=== PATIENT | male | born 1975 | race Caucasian/White ===

== ENCOUNTER 2018-11-22 20:04 | Emergency (ER) | payer OTHER ==
[2018-11-22] MEDS ORDERED: KETOROLAC 30 MG/ML INJ ONE (23:06)
[2018-11-22] MEDS ORDERED: ASPIRIN 81 MG CHEWABLE TABLET ONE (23:06)
[2018-11-22 23:12] LABS: Absolute Lymphocytes (CBC) 1.9 K/uL (0.7-4.9); Absolute Monocytes 1.2 K/uL (0.1-1.3); Absolute Neutrophil 16.5 K/uL (1.8-8.0); Basophils % 0.2 % (0-1.3); Eosinophils % 0.4 % (0-4.4); Hematocrit 49.6 % (39.6-49.0); Lymphocytes % 9.8 % (15.3-44.8); MPV 8.9 fL (7.6-11.3); RBC Red Blood Cell Count 5.35 M/uL (4.33-5.43)
[2018-11-22 23:13] LABS: Protime INR 0.98
[2018-11-22 23:25] LABS: ALT/SGPT 64 U/L (12-78); AST/SGOT 34 U/L (15-37); Albumin 4.2 g/dL (3.4-5.0); Alkaline Phosphatase 99 U/L (45-117); BUN Blood Urea Nitrogen 9 mg/dL (7-18); Bicarbonate 27 mmol/L (21-32); Bilirubin Direct 0.2 mg/dL (0-0.2); Bilirubin Total 0.8 mg/dL (0.2-1.0); Glucose Level 101 mg/dL (74-106); Magnesium 2.1 mg/dL (1.8-2.4); NT PRO-BNP 12 pg/mL (<125); Protein, Total 8.8 g/dL (6.4-8.2); Sodium Level 139 mmol/L (136-145); Troponin (Emerg Dept Use Only) < 0.02 ng/mL (0.0-0.045)
[2018-11-22] MEDS ORDERED: NA CHLORIDE 0.9% 1,000 ML ONE (23:28)
[2018-11-22] MEDS ORDERED: NA CHLORIDE 0.9% 2,000 ML ONE (23:42)
[2018-11-23 02:25] LABS: Urine Bacteria <20 /HPF (NONE SEEN); Urine Culture Reflex Order NOT NEEDED; Urine RBC <5 /HPF (NONE SEEN)
--- NOTE | 2018-11-23 03:36 | EDPHYS ---
Physician Documentation [facility] Name: Renard Rosales Age: 43 yrs Sex: Male : 1975 Arrival Date: 11/22/2018 Time: 20:09 Bed 18 Private MD: ED Physician Christian Wasserman HPI: 11/22 22:25 This 43 yrs old Male presents to ER via Ambulatory with complaints of Sore cp Throat, body aches, chills. 22:25 The patient or guardian reports chest pain that is located primarily in the anterior cp chest wall, bilaterally. 22:25 Onset: suddenly, today, about 1600 while walking to office. cp 11/23 22:25 Associated signs and symptoms: Pertinent positives: cough, sore throat, Pertinent cp negatives: abdominal pain, diaphoresis, lower extremity pain, lower extremity swelling, recent travel, shortness of breath, vomiting. Historical: - Allergies: 11/22 21:04 No Known Allergies; bb - Home Meds: 21:04 None [Active]; bb - PMHx: 21:04 None; bb - PSHx: 21:04 Ear Tubes; Tonsillectomy; bb - Immunization history:: Adult Immunizations up to date, Flu vaccine is not up to date. - Social history:: Smoking status: Patient/guardian denies using tobacco, Patient uses alcohol, on a daily basis. Patient/guardian denies using street drugs. - Ebola Screening: : No symptoms or risks identified at this time. ROS: 22:30 Constitutional: Positive for low grade fever, Negative for poor PO intake. cp 22:30 ENT: Positive for sore throat, Negative for drainage from ear(s), ear pain, difficulty cp swallowing, difficulty handling secretions. 22:30 Neck: Negative for pain with movement, pain at rest, stiffness, tenderness. 22:30 Cardiovascular: Positive for chest pain, Negative for edema. 22:30 Respiratory: Positive for slight cough, Negative for shortness of breath, wheezing. 22:30 Abdomen/GI: Negative for abdominal pain, vomiting, diarrhea, constipation, black/tarry stool, rectal bleeding. 22:30 Back: Positive for pain at rest, Negative for injury or acute deformity. 22:30 : Negative for urinary symptoms, flank pain. 22:30 Skin: Negative for cellulitis, rash. 22:30 Neuro: Negative for altered mental status, dizziness, headache, weakness. 22:30 All other systems are negative. Exam: 22:35 Constitutional: The patient appears in no acute distress, alert, awake, cp non-diaphoretic, non-toxic, well developed, well nourished. 22:35 Head/Face: Normocephalic, atraumatic. Eyes: Pupils equal round and reactive to light, cp extra-ocular motions intact. Lids and lashes normal. Conjunctiva and sclera are non-icteric and not injected. Cornea within normal limits. Periorbital areas with no swelling, redness, or edema. ENT: Nares patent. No nasal discharge, no septal abnormalities noted. Tympanic membranes are normal and external auditory canals are clear. Oropharynx with no redness, swelling, or masses, exudates, or evidence of obstruction, uvula midline. Mucous membranes moist. Neck: Trachea midline, no thyromegaly or masses palpated, and no cervical lymphadenopathy. Supple, full range of motion without nuchal rigidity, or vertebral point tenderness. No Meningismus. Chest/axilla: Normal chest wall appearance and motion. Nontender with no deformity. No lesions are appreciated. 22:35 Cardiovascular: Rate: tachycardic, Rhythm: regular, Heart sounds: murmur, not appreciated, rub, not appreciated, gallop, not appreciated, Edema: is not appreciated, JVD: is not appreciated. 22:35 Respiratory: the patient does not display signs of respiratory distress, Respirations: normal, no use of accessory muscles, no retractions, no splinting, no tachypnea, labored breathing, is not present, Breath sounds: are clear throughout, no decreased breath sounds, no stridor, no wheezing. 22:35 Abdomen/GI: Inspection: abdomen appears normal, Bowel sounds: active, all quadrants, Palpation: abdomen is soft and non-tender, in all quadrants, rebound tenderness, is not appreciated, involuntary guarding, is not appreciated. 22:35 Back: pain, is absent, ROM is normal. 22:35 Skin: cellulitis, is not appreciated, no rash present. 22:35 Neuro: Orientation: to person, place \T\ time. Mentation: is normal, Cerebellar function: is grossly normal, Motor: moves all fours, strength is normal, Sensation: is normal. 23:05 ECG was reviewed by the Attending Physician. cp Vital Signs: 21:04 BP 146 / 96; Pulse 109; Resp 16 S; Temp 100(O); Pulse Ox 97% on R/A; Weight 99.79 kg bb (R); Height 5 ft. 10 in. (177.80 cm) (R); Pain 3/10; 23:56 BP 140 / 98; Pulse 117; Resp 17 S; Temp 98.8; Pulse Ox 97% on R/A; jd3 02/13 01:09 BP 114 / 96; Pulse 113; Resp 17 S; Pulse Ox 97% on R/A; jd3 02:18 BP 128 / 92; Pulse 84; Resp 16 S; Pulse Ox 97% on R/A; jd3 03:13 BP 133 / 97; Pulse 81; Resp 17 S; Pulse Ox 98% on R/A; jd3 02/12 21:04 Body Mass Index 31.57 (99.79 kg, 177.80 cm) bb MDM: 11/22 22:09 Patient medically screened. cp 23:00 Differential diagnosis: abnormal EKG, acute myocardial infarction, acute pericarditis, cp chest wall pain, myocarditis, sepsis, pneumonia, influenza, strep throat. 11/23 01:30 The patient was given aspirin in the Emergency Department. cp 01:30 Refusal of service: The patient/guardian displays adequate decision making capability cp and despite a detailed discussion of alternatives, benefits, risks, and consequences refuses: CT Scan. 03:33 Data reviewed: vital signs, nurses notes, lab test result(s), EKG, radiologic studies, cp plain films. 03:33 Test interpretation: by ED physician or midlevel provider: ECG, plain radiologic cp studies. Counseling: I had a detailed discussion with the patient and/or guardian regarding: the historical points, exam findings, and any diagnostic results supporting the discharge/admit diagnosis, lab results, radiology results, the need for outpatient follow up, a family practitioner, to return to the emergency department if symptoms worsen or persist or if there are any questions or concerns that arise at home. Response to treatment: the patient's symptoms have markedly improved after treatment, and as a result, I will discharge patient. 11/22 21:06 Order name: Flu; Complete Time: 22:19 bb 11/22 22:19 Interpretation: Reviewed. cp 11/22 21:06 Order name: Strep; Complete Time: 22:19 bb / 22:19 Interpretation: Reviewed. cp 02/ 22:07 Order name: Throat Culture EDMS 02/ 22:24 Order name: Basic Metabolic Panel; Complete Time: 23:51 cp 02/12 23:51 Interpretation: Normal except: GFR 62. cp / 22:24 Order name: CBC with Diff; Complete Time: 23:18 cp / 23:18 Interpretation: Normal except: WBC 19.8; HCT 49.6; TINO% 83.6; LYM% 9.8; NEUT A 16.5. cp 02/ 22:24 Order name: LFT's; Complete Time: 23:51 cp 02/ 23:51 Interpretation: Normal except: TP 8.8; GLOB 4.6; A/G 0.9. cp 02/ 22:24 Order name: Magnesium; Complete Time: 23:51 cp / 22:24 Order name: NT PRO-BNP; Complete Time: 23:51 cp / 22:24 Order name: PT-INR; Complete Time: 23:18 cp 02/ 22:24 Order name: Troponin (emerg Dept Use Only); Complete Time: 23:51 cp / 23:22 Order name: Lactate; Complete Time: 00:49 cp 02/13 00:49 Interpretation: LAC 2.5; Reviewed. cp / 23:22 Order name: Procalcitonin; Complete Time: 01:44 cp 02/ 01:44 Interpretation: Procalcitonin < 0.05; Reviewed. cp / 23:22 Order name: Blood Culture Adult (2) cp / 23:23 Order name: D-Dimer; Complete Time: 00:43 cp 02/ 00:43 Interpretation: D-DIMER 381; Reviewed. cp / 22:24 Order name: XRAY Chest (1 view) cp / 22:24 Order name: EKG; Complete Time: 22:26 cp / 22:24 Order name: Cardiac monitoring; Complete Time: 22:53 cp / 22:24 Order name: EKG - Nurse/Tech; Complete Time: 23:03 cp / 22:24 Order name: IV Saline Lock; Complete Time: 22:53 cp / 22:24 Order name: Labs collected and sent; Complete Time: 22:53 cp 11/22 22:24 Order name: O2 Per Protocol; Complete Time: 22:54 cp 11/22 22:24 Order name: O2 Sat Monitoring; Complete Time: 22:54 cp 11/22 23:52 Order name: Urine Microscopic Only; Complete Time: 02:32 cp 11/23 02:32 Interpretation: Reviewed. 11/23 02:01 Order name: Urine Dipstick--Ancillary (enter results) ms 11/23 02:40 Order name: Lactate: 2 hr repeat 11/23 02:41 Order name: Lactate; Complete Time: 03:26 EDMS 11/23 03:26 Interpretation: LAC 1.6; Reviewed. 11/22 23:52 Order name: Urine Dipstick-Ancillary (obtain specimen); Complete Time: 02:27 cp EC/12 23:05 Rate is 121 beats/min. Rhythm is regular. [place] interval is normal. QRS interval is cp normal. QT interval is normal. Interpreted by me. Reviewed by me. Administered Medications: 23:03 Drug: Aspirin Chewable Tablet 324 mg Route: PO; [facility] 11/23 03:47 Follow up: Response: No adverse reaction j 11/22 23:03 Drug: TORadol 30 mg Route: IVP; Site: right antecubital; jd3 11/23 03:46 Follow up: Response: No adverse reaction jd3 01:07 Drug: NS 0.9% 1000 ml Route: IV; Rate: 1 bolus; Site: right antecubital; jd3 03:46 Follow up: Response: No adverse reaction; IV Status: Completed infusion jd3 01:08 Drug: NS 0.9% (30 ml/kg) 30 ml/kg Route: IV; Rate: bolus; Site: right antecubital; jd3 03:46 Follow up: Response: No adverse reaction; IV Status: Completed infusion jd3 Disposition: 04:00 Chart complete. cp 06:54 Co-signature as Attending Physician, Christian Wasserman MD I agree with the assessment and bogdan plan of care. Disposition: 11/23/18 03:35 Discharged to Home. Impression: Elevated white blood cell count, unspecified, Dehydration. - Condition is Stable. - Discharge Instructions: Dehydration, Adult, Leukocytosis. - Medication Reconciliation Form, Thank You Letter, Antibiotic Education, Prescription Opioid Use form. - Follow up: Private Physician; When: 1 - 2 days; Reason: Recheck today's complaints. - Problem is new. - Symptoms have improved. Signatures: Dispatcher [employer] EDMS Christian Wasserman MD MD cha Ballard, Brenda, RN RN Christian Tinoco PA PA cp Davies, Jonathon, RN RN jd3 Corrections: (The following items were deleted from the chart) 03:37 03:35 11/23/2018 03:35 Discharged to Home. Impression: Elevated white blood cell count, cp unspecified. Condition is Stable. Forms are Medication Reconciliation Form, Thank You Letter, Antibiotic Education, Prescription Opioid Use. Follow up: Private Physician; When: 1 - 2 days; Reason: Recheck today's complaints. Problem is new. Symptoms have improved. cp 03:47 03:37 11/23/2018 03:35 Discharged to Home. Impression: Elevated white blood cell count, jd3 unspecified; Dehydration. Condition is Stable. Discharge Instructions: Leukocytosis. Forms are Medication Reconciliation Form, Thank You Letter, Antibiotic Education, Prescription Opioid Use. Follow up: Private Physician; When: 1 - 2 days; Reason: Recheck today's complaints. Problem is new. Symptoms have improved. cp
--- NOTE | 2018-11-23 03:36 | ER ---
Nurse's Notes [facility] Name: Renard Rosales Age: 43 yrs Sex: Male : 1975 Arrival Date: 11/22/2018 Time: 20:09 Bed 18 Private MD: Diagnosis: Elevated white blood cell count, unspecified;Dehydration Presentation: 11/22 21:02 Presenting complaint: Patient states: he had an onset of feeling achy starting at bb approx 1600 and is feeling pressure across his torso into his back has an occasional cough starting tonight. Transition of care: patient was not received from another setting of care. Onset of symptoms was November 22, 2018. Risk Assessment: Do you want to hurt yourself or someone else? Patient reports no desire to harm self or others. Initial Sepsis Screen: Does the patient meet any 2 criteria? No. Patient's initial sepsis screen is negative. Does the patient have a suspected source of infection? No. Patient's initial sepsis screen is negative. Care prior to arrival: None. 21:02 Method Of Arrival: Ambulatory 21:02 Acuity: BARB 3 bb Historical: - Allergies: 21:04 No Known Allergies; bb - Home Meds: 21:04 None [Active]; bb - PMHx: 21:04 None; bb - PSHx: 21:04 Ear Tubes; Tonsillectomy; bb - Immunization history:: Adult Immunizations up to date, Flu vaccine is not up to date. - Social history:: Smoking status: Patient/guardian denies using tobacco, Patient uses alcohol, on a daily basis. Patient/guardian denies using street drugs. - Ebola Screening: : No symptoms or risks identified at this time. Screenin:51 Abuse screen: Denies threats or abuse. Nutritional screening: No deficits noted. jd3 Tuberculosis screening: No symptoms or risk factors identified. Fall Risk Ambulatory Aid- None/Bed Rest/Nurse Assist (0 pts). Gait- Normal/Bed Rest/Wheelchair (0 pts) Mental Status- Oriented to own ability (0 pts). Total Uriostegui Fall Scale indicates No Risk (0-24 pts). Assessment: 21:50 General: Appears in no apparent distress. uncomfortable, Behavior is calm, cooperative, jd3 appropriate for age. Pain: Denies pain. Complains of pain in chest, right arm, left arm and neck Quality of pain is described as aching. Neuro: Level of Consciousness is awake, alert, obeys commands, Oriented to person, place, time, situation. Cardiovascular: Heart tones S1 S2 present Capillary refill < 3 seconds Patient's skin is warm and dry. Respiratory: Reports cough that is non-productive, Airway is patent Respiratory effort is even, unlabored, Respiratory pattern is regular, symmetrical, Breath sounds are clear bilaterally. GI: Abdomen is round non-distended, Reports indigestion. : No signs and/or symptoms were reported regarding the genitourinary system. EENT: Throat is reddened. Derm: Skin is intact, Skin is dry, Skin is normal, Skin temperature is warm. Musculoskeletal: Circulation, motion, and sensation intact. Range of motion: intact in all extremities. 22:53 Reassessment: Patient appears in no apparent distress at this time. Patient and/or jd3 family updated on plan of care and expected duration. Pain level reassessed. Patient is alert, oriented x 3, equal unlabored respirations, skin warm/dry/pink. 23:56 Reassessment: Patient appears in no apparent distress at this time. Patient and/or jd3 family updated on plan of care and expected duration. Pain level reassessed. Patient is alert, oriented x 3, equal unlabored respirations, skin warm/dry/pink. pt requesting to hold the fluids until results of lactate and procalcitonin are resulted. 11/23 01:10 Reassessment: Patient appears in no apparent distress at this time. Patient and/or jd3 family updated on plan of care and expected duration. Pain level reassessed. Patient is alert, oriented x 3, equal unlabored respirations, skin warm/dry/pink. provider at bedside discussing plan of care. 02:18 Reassessment: Patient appears in no apparent distress at this time. Patient and/or jd3 family updated on plan of care and expected duration. Pain level reassessed. Patient is alert, oriented x 3, equal unlabored respirations, skin warm/dry/pink. 03:12 Reassessment: Patient appears in no apparent distress at this time. Patient and/or jd3 family updated on plan of care and expected duration. Pain level reassessed. Patient is alert, oriented x 3, equal unlabored respirations, skin warm/dry/pink. Vital Signs: 11/22 21:04 BP 146 / 96; Pulse 109; Resp 16 S; Temp 100(O); Pulse Ox 97% on R/A; Weight 99.79 kg bb (R); Height 5 ft. 10 in. (177.80 cm) (R); Pain 3/10; 23:56 BP 140 / 98; Pulse 117; Resp 17 S; Temp 98.8; Pulse Ox 97% on R/A; jd3 11/23 01:09 BP 114 / 96; Pulse 113; Resp 17 S; Pulse Ox 97% on R/A; jd3 02:18 BP 128 / 92; Pulse 84; Resp 16 S; Pulse Ox 97% on R/A; jd3 03:13 BP 133 / 97; Pulse 81; Resp 17 S; Pulse Ox 98% on R/A; jd3 11/22 21:04 Body Mass Index 31.57 (99.79 kg, 177.80 cm) bb ED Course: 11/22 20:09 Patient arrived in ED. am2 21:04 Triage completed. bb 21:04 Arm band placed on Patient placed in waiting room, Patient notified of wait time. strep bb and flu sent to lab. Family accompanied patient. 21:37 Fausto Silvestre, RN is Primary Nurse. jd3 21:51 Patient has correct armband on for positive identification. Bed in low position. Call j light in reach. Side rails up X 1. 22:09 Christian Turner PA is PHCP. cp 22:09 Christian Wasserman MD is Attending Physician. cp 22:44 Inserted saline lock: 20 gauge in right antecubital area, using aseptic technique. mw2 Blood collected. 22:58 XRAY Chest (1 view) In Process Unspecified. EDMS 11/23 03:45 No provider procedures requiring assistance completed. IV discontinued, intact, jd3 bleeding controlled, No redness/swelling at site. Pressure dressing applied. Administered Medications: 11/22 23:03 Drug: Aspirin Chewable Tablet 324 mg Route: PO; jd3 11/23 03:47 Follow up: Response: No adverse reaction jd3 11/22 23:03 Drug: TORadol 30 mg Route: IVP; Site: right antecubital; jd3 11/23 03:46 Follow up: Response: No adverse reaction jd3 01:07 Drug: NS 0.9% 1000 ml Route: IV; Rate: 1 bolus; Site: right antecubital; jd3 03:46 Follow up: Response: No adverse reaction; IV Status: Completed infusion jd3 01:08 Drug: NS 0.9% (30 ml/kg) 30 ml/kg Route: IV; Rate: bolus; Site: right antecubital; jd3 03:46 Follow up: Response: No adverse reaction; IV Status: Completed infusion jd3 Outcome: 03:35 Discharge ordered by MD. cp 03:45 Discharged to home ambulatory, with family. jd3 03:45 Condition: stable 03:45 Discharge instructions given to patient, family, Instructed on discharge instructions, follow up and referral plans. Demonstrated understanding of instructions, follow-up care. 03:47 Patient left the ED. jd3 Signatures: Dispatcher [employer] EDAnabella Dominguez RN RN Christian Tinoco PA PA cp Moreno, Amanda amFausto Mujica RN RN jd3 [place]brook, MyKena mw2 Corrections: (The following items were deleted from the chart) 11/22 23:58 23:56 Reassessment: Patient appears in no apparent distress at this time. Patient jd3 and/or family updated on plan of care and expected duration. Pain level reassessed. Patient is alert, oriented x 3, equal unlabored respirations, skin warm/dry/pink. jd3 11/23 01:11 01:09 Resp 17bpm; Spontaneous; Pulse Ox 97% RA; jd3 jd3
[2018-11-23 04:18] LABS: Urine Blood NEGATIVE (NEG); Urine Glucose NEGATIVE (NEG); Urine Protein NEGATIVE (NEG); Urine Specific Gravity 1.015 (1.005-1.030); Urine pH 6.5 (5.0-7.0)
--- NOTE | 2018-11-23 08:02 | RAD REPORT ---
EXAM DESCRIPTION: Neda Single View11/22/2018 10:58 pm CLINICAL HISTORY: Chest pain COMPARISON: none FINDINGS: The lungs appear clear of acute infiltrate. The heart is normal size IMPRESSION: No acute abnormalities displayed
--- NOTE | 2018-11-23 09:54 | EKG ---
Test Date: 2018-11-22 Test Time: 22:59:05 District Sales Manager: JOHNNY MEASUREMENT RESULTS: Intervals: Rate: 121 NC: 158 QRSD: 82 QT: 316 QTc: 448 [place]: P: 36 NC: 158 QRS: 59 T: 48 INTERPRETIVE STATEMENTS: Sinus tachycardia Otherwise normal ECG No previous ECG available for comparison Electronically Signed On 11-23-18 09:54:02 FLIGHT STEWARD by Balbir Villa
== END 2018-11-23 03:47 | disposition home or self-care (01) ==
LOC: ER 20:04
DX: D72.829 Elevated white blood cell count, unspecified (principal); E86.0 Dehydration; J02.9 Acute pharyngitis, unspecified; R05 Cough
CPT/HCPCS: 36415; 71045; 80048; 80076; 81003; 81015; 83605; 83735; 83880; 84145; 84484; 85025; 85379; 85610; 87040; 87070; 87081; 87804; 93005; 96365; 96366; 96375; 99284; J7030